=== PATIENT | female | born 2000 | race African-American/Black ===

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

== ENCOUNTER 2020-03-28 15:02 | Inpatient (IN) ==
[2020-03-28 18:21] LABS: ABS Lymphocytes 1.3 10^3/ul (1.0-4.8); ABS Monocytes 0.4 10^3/ul (0-0.8); ABS Neutrophils 5.1 10^3/ul (1.5-7.7); Eosinophil % 0.7 %; Hematocrit 42 % (35-47); Hemoglobin 14.1 g/dL (12.0-16.0); Mean Corpuscular HGB Conc 34 g/dL (31-36); Mean Corpuscular Hemoglobin 28 pg (27-31); Mean Corpuscular Volume 82 fL (80-97); Mean Platelet Volume 8.5 fL (7.4-10.4); Nucleated Red Blood Cells % 0.1; Platelet Count 215 10^3/uL (150-450); Red Blood Count 5.15 10^6 /uL (3.70-4.87); Red Cell Distribution Width 15 % (10-15); White Blood Count 6.9 10^3/uL (3.5-10.8)
[2020-03-28 18:23] LABS: Urine Appearance Cloudy; Urine Bilirubin Negative (Negative); Urine Blood Negative (Negative); Urine Color Yellow; Urine Glucose Negative (Negative); Urine Ketones 1+ (Negative); Urine Nitrite Negative (Negative); Urine Protein 2+(100 mg/dL) (Negative); Urine Specific Gravity 1.026 (1.010-1.030); Urine Urobilinogen Negative (Negative)
[2020-03-28 18:30] LABS: Urine Bacteria 1+ (Absent); Urine Red Blood Cell 2+(6-10/hpf) (Absent); Urine Squamous Epithelial Cell Present (Absent); Urine White Blood Cell Trace(0-5/hpf) (Absent)
[2020-03-28 18:32] LABS: ALT 8 U/L (7-52); AST 22 U/L (13-39); Albumin/Globulin Ratio 1.4 (1-3); Alkaline Phosphatase 56 U/L (34-104); Anion Gap 10 mmol/L (2-11); BUN/Creatinine Ratio 13.9 (8-20); Blood Urea Nitrogen 10 mg/dL (6-24); CO2 Carbon Dioxide 25 mmol/L (22-32); Calcium 9.7 mg/dL (8.6-10.3); Chloride 102 mmol/L (101-111); EGFR African American 126.3 (>60); EGFR Non-African American 104.3 (>60); Globulin 3.7 g/dL (2-4); Glucose 70 mg/dL (70-100); Potassium 3.4 mmol/L (3.5-5.0); Sodium 137 mmol/L (135-145); Total Protein 8.7 g/dL (6.4-8.9)
[2020-03-28 18:39] LABS: HCG Pregnancy < 0.60 mIU/mL
[2020-03-28 18:57] LABS: Acetaminophen < 15 mcg/mL; Alcohol, S < 10 mg/dL (<10); Salicylate < 2.50 mg/dL (<30)
[2020-03-28 18:59] LABS: Urine Benzodiazepine Screen None Detected (None Detect); Urine Cannabinoids Screen Presumptive Positive (None Detect); Urine Opiates Screen None Detected (None Detect)
[2020-03-28 19:20] LABS: TSH Ultra Thyroid Stim Horm 0.42 mcIU/mL (0.34-5.60)
[2020-03-29] MEDS ORDERED: Al Hydrox/Mg Hydrox/Simet LIQ 30 ML UDC PO PRN (02:20)
[2020-03-29] MEDS: Vitamin THERAPEUTIC TAB PO SCH (13:54)
[2020-03-29] MEDS: risperiDONE-M 1 mg Oradis TAB PO SCH (18:04)
[2020-03-30] MEDS: Vitamin THERAPEUTIC TAB PO SCH (11:14)
[2020-03-30] MEDS: risperiDONE-M 1 mg Oradis TAB PO SCH ×2 (18:44→21:18)
[2020-03-31] MEDS: Vitamin THERAPEUTIC TAB PO SCH (07:58)
[2020-03-31 08:32] LABS: HDL Cholesterol 47.3 mg/dL
[2020-03-31] MEDS ORDERED: risperiDONE-M 1 mg Oradis TAB ONE (17:58)
[2020-04-01] MEDS: risperiDONE-M 1 mg Oradis TAB PO PRN (10:36)
[2020-04-01] MEDS: Vitamin THERAPEUTIC TAB PO SCH (10:37)
[2020-04-01] MEDS ORDERED: Influenza VAC *QUAD* 2020-21* 0.5 ML SYRINGE IM ONE (15:00)
[2020-04-02] MEDS: risperiDONE-M 1 mg Oradis TAB PO PRN (00:41)
[2020-04-02] MEDS: Vitamin THERAPEUTIC TAB PO SCH (09:29)
[2020-04-03] MEDS: Vitamin THERAPEUTIC TAB PO SCH (10:55)
[2020-04-04] MEDS: Vitamin THERAPEUTIC TAB PO SCH (08:38)
[2020-04-05] MEDS: Vitamin THERAPEUTIC TAB PO SCH (09:04)
[2020-04-06] MEDS: Vitamin THERAPEUTIC TAB PO SCH (09:03)
[2020-04-07] MEDS: Vitamin THERAPEUTIC TAB PO SCH (09:21)
[2020-04-08] MEDS: Vitamin THERAPEUTIC TAB PO SCH (08:12)
[2020-04-09] MEDS: Vitamin THERAPEUTIC TAB PO SCH (08:47)
[2020-04-09 10:13] VITALS: BP 105/59
== END 2020-04-09 16:37 | disposition home or self-care (01) | DRG 897 ==
LOC: ED 15:02 → BSU 03-29 01:25
PROVIDERS: ADMIT Psychiatry & Neurology Psychiatry; ATTEND Psychiatry & Neurology Psychiatry

== ENCOUNTER 2024-05-22 11:59 | Inpatient (IN) ==
[2024-05-22 14:58] LABS: ABS Basophils 0.1 10^3/uL (0.0-0.1); ABS Eosinophils 0.1 10^3/uL (0.0-0.5); ABS Lymphocytes 1.2 10^3/uL (1.0-4.8); ABS Monocytes 0.5 10^3/uL (0.0-0.9); ABS Neutrophils 3.1 10^3/uL (1.5-7.6); Eosinophil % 1.5 %; Hematocrit 39.2 % (35-45); Hemoglobin 13.1 g/dL (11.5-14.3); Lymphocyte % 23.8 %; Mean Corpuscular Hemoglobin 29.6 pg (27-33); Mean Corpuscular Hgb Conc 33.3 g/dL (31-36); Mean Corpuscular Volume 88.8 fL (80-97); Mean Platelet Volume 8.4 fL (7.5-11.2); Nucleated Red Blood Cells % 0.1 %/100WBC (0.0-0.8); Platelet Count 194 10^3/uL (150-450); Red Blood Count 4.42 10^6/uL (3.63-4.92); Red Cell Distribution Width 15.2 % (12-17); White Blood Count 4.9 10^3/uL (3.8-11.8)
[2024-05-22 15:34] LABS: ALT 24 U/L (7-52); AST 52 U/L (13-39); Acetaminophen < 15 mcg/mL; Albumin 4.3 g/dL (3.2-5.2); Albumin/Globulin Ratio 1.9 (1-3); Alcohol, S < 13 mg/dL (<13); Alkaline Phosphatase 35 U/L (35-149); Anion Gap 8 mmol/L (2-16); Blood Urea Nitrogen 9 mg/dL (6-24); CO2 Carbon Dioxide 25 mmol/L (22-32); Chloride 106 mmol/L (101-111); Creatinine, Serum 0.66 mg/dL (0.51-0.95); Globulin 2.3 g/dL (2-4); Glucose 94 mg/dL (70-100); Potassium 3.1 mmol/L (3.5-5.0); Salicylate < 2.50 mg/dL (<30); Sodium 139 mmol/L (135-145); Total Bilirubin 0.8 mg/dL (0.2-1.0); Total Protein 6.6 g/dL (6.4-8.9); eGFR CKD-EPI 126.3 (>60)
[2024-05-22 15:40] LABS: HCG Pregnancy < 0.60 mIU/mL
[2024-05-22 15:49] LABS: TSH Ultra Thyroid Stim Horm 0.14 mcIU/mL (0.34-5.60)
[2024-05-23 08:15] LABS: HDL Cholesterol 107.6 mg/dL
[2024-05-23] MEDS ORDERED: Al Hydrox/Mg Hydrox/Simet LIQ 30 ML UDC PO PRN (09:54)
[2024-05-23 12:26] LABS: T4, Total 10.11 mcg/dL (6.09-12.23)
[2024-05-23 12:27] LABS: Free T3 3.55 pg/mL (2.5-3.9)
[2024-05-23] MEDS: Potassium Chlor 20 meq TAB.ER PO ONE (15:33)
[2024-05-23] MEDS: risperiDONE-M 1 mg Oradis TAB PO SCH (20:10)
[2024-05-24] MEDS: Vitamin THERAPEUTIC TAB PO SCH (07:59)
[2024-05-24 12:45] LABS: Creatinine, Serum 0.59 mg/dL (0.51-0.95); Potassium 3.8 mmol/L (3.5-5.0); eGFR CKD-EPI 129.8 (>60)
[2024-05-27] MEDS: Paliperidone SUSTENNA 234 MG/1.5 ML IM ONE (10:37)
[2024-05-30] MEDS: Paliperidone SUSTENNA 156 MG/1 ML IM ONE (09:20)
[2024-06-04] MEDS: Nicotine PATCH 14 MG/24 HR PATCH TRANSDERM SCH (15:18)
[2024-06-14 11:33] VITALS: BP 121/81
== END 2024-06-14 12:20 | disposition home or self-care (01) | DRG 753 ==
LOC: ED 11:59 → EDHOLD 17:48 → BSU 18:00
PROVIDERS: ADMIT Psychiatry & Neurology Psychiatry; ATTEND Psychiatry & Neurology Psychiatry